=== PATIENT | female | born 1940 | race Caucasian/White ===

== ENCOUNTER 2019-08-06 22:46 | Observation (INO) | payer OTHER ==
[~2019-08-06] VITALS: Ht 152.4 cm; Wt 70.1 kg
[2019-08-06 23:08] VITALS: Ht 152.4 cm; Wt 70.1 kg
[2019-08-06 23:36] LABS: microscopic required? NO
[2019-08-06 23:55] LABS: PLATELET COUNT 168 x10^3mcL (130-400); RED CELL DISTRIBUTION WIDTH 13.6 % (11.5-14.5)
[2019-08-06 23:58] LABS: CARBON DIOXIDE 26.2 mmol/L (21-32); CHLORIDE SERUM 99 mmol/L (98-107); CREATININE SERUM 1.1 mg/dL (0.6-1.0); GLUCOSE SERUM 136 mg/dL (74-106); POTASSIUM SERUM 3.5 mmol/L (3.5-5.1); SODIUM SERUM 136 mmol/L (136-145)
[2019-08-06 23:58] LABS: urine erythrocyte NEGATIVE (NEGATIVE)
[2019-08-07 00:12] LABS: ALKALINE PHOSPHATASE 196 U/L (46-116); ALT/SGPT 270 U/L (14-59); AST/SGOT 158 U/L (15-37); BILIRUBIN TOTAL 1.3 mg/dL (0.20-1.00); TOTAL PROTEIN, SERUM 7.2 g/dL (6.4-8.2)
[2019-08-07 00:19] LABS: ALBUMIN 3.3 g/dL (3.4-5.0)
[2019-08-07] MEDS ORDERED: HORIZANT300 MG PO (03:03)
[2019-08-07] MEDS ORDERED: LOSARTAN POTASS50 M1 PO (03:04)
[2019-08-07 04:30] VITALS: BP 155/64
[2019-08-07 07:13] LABS: ALKALINE PHOSPHATASE 133 U/L (46-116); ALT/SGPT 205 U/L (14-59); AST/SGOT 80 U/L (15-37); BILIRUBIN TOTAL 0.8 mg/dL (0.20-1.00); CALCIUM 8.4 mg/dL (8.5-10.1); CHLORIDE SERUM 104 mmol/L (98-107); GLUCOSE SERUM 118 mg/dL (74-106); POTASSIUM SERUM 3.8 mmol/L (3.5-5.1); SODIUM SERUM 138 mmol/L (136-145)
[2019-08-07 07:14] LABS: ALBUMIN 2.6 g/dL (3.4-5.0)
[2019-08-07 08:47] VITALS: BP 149/62
[2019-08-07 10:42] LABS: PLATELET COUNT 175 x10^3mcL (130-400)
[2019-08-07 10:43] LABS: BASOPHIL % 0.4 % (0-2)
[2019-08-07 11:23] LABS: BAND NEUTROPHIL 22 % (0-10); BASOPHIL 0 % (0-2); MONOCYTE 10 % (0-7); SEGMENTED NEUTROPHILS 46 % (37-75); rbc morphology (normal/abnorm) ABNORMAL (NORMAL)
[2019-08-07 11:24] LABS: PLATELET MORPHOLOGY PLATELETS INCREASED
[2019-08-07 13:12] VITALS: BP 146/59
[2019-08-07 17:01] VITALS: BP 150/69
[2019-08-07 21:15] VITALS: BP 140/63
[2019-08-08 03:00] LABS: BASOPHIL % 0.7 % (0-2); PLATELET COUNT 199 x10^3mcL (130-400); RED CELL DISTRIBUTION WIDTH 13.9 % (11.5-14.5)
[2019-08-08 03:17] LABS: CARBON DIOXIDE 31.4 mmol/L (21-32); CHLORIDE SERUM 106 mmol/L (98-107); CREATININE SERUM 0.7 mg/dL (0.6-1.0); GLUCOSE SERUM 112 mg/dL (74-106); SODIUM SERUM 141 mmol/L (136-145)
[2019-08-08 05:20] VITALS: BP 149/77
[2019-08-08 08:26] VITALS: BP 150/77
[2019-08-08] MEDS ORDERED: KEFLEX500 M1 PO (08:59)
[2019-08-08 12:50] VITALS: BP 150/77
== END 2019-08-08 13:52 | disposition home or self-care (01) ==
LOC: ED 22:46 → DU 08-07 03:23 → MU 08-07 03:23 → DU 08-07 03:23 → MU 08-07 19:02
PROVIDERS: Emergency Medicine; Internal Medicine; ADMIT Internal Medicine Pulmonary Disease
DX: N12 Tubulo-interstitial nephritis, not specified as acute or chronic (principal); R00.0 Tachycardia, unspecified; R51 Headache; R42 Dizziness and giddiness; M54.9 Dorsalgia, unspecified; R30.0 Dysuria; R31.9 Hematuria, unspecified
CPT/HCPCS: G0378; J0696; J1644; J7030; J7060; J7120; Q0092; Q9967